=== PATIENT | male | born 1945 | race Caucasian/White ===

== ENCOUNTER → 2016-07-22 | Outpatient (CLI) | payer OTHER, MEDICARE ==
[~2016-07-22] MED LIST: ACTO30TA7 PO; ASPI81CH PO; ASPI81TA60 PO; FISH1000 PO; HYDR25T PO; IBUP80TA PO; JANU100T PO; LIPI20TA PO; MAGN500C PO; METF500T4 PO; MULT1TAB8 PO; PRIL40CA PO; VITA500C10 PO; [UNRECOGNIZED DRUG - OTHER] PO
== END ==
LOC: M PAIN 11:00
PROVIDERS: ATTEND Anesthesiology
DX: Z09 Encounter for follow-up examination after completed treatment for conditions other than malignant neoplasm (principal); G89.29 Other chronic pain; M51.16 Intervertebral disc disorders with radiculopathy, lumbar region; M51.17 Intervertebral disc disorders with radiculopathy, lumbosacral region; E11.9 Type 2 diabetes mellitus without complications; E78.5 Hyperlipidemia, unspecified; I10 Essential (primary) hypertension; Z88.5 Allergy status to narcotic agent; Z79.82 Long term (current) use of aspirin; Z79.84 Long term (current) use of oral hypoglycemic drugs; Z79.899 Other long term (current) drug therapy

== ENCOUNTER → 2016-09-18 | Outpatient (CLI) | payer OTHER, MEDICARE ==
--- NOTE | 2016-09-29 00:04 | ECWPNPC ---
PATIENT NAME: DARCY THOMASON : 1945 GENDER: MALE VISIT DATE: 09/18/2016 DISCHARGE DATE: 09/18/16 1144 VISIT LOCKED DATE TIME: PHYSICIAN: HUSSAIN WATT RESOURCE: HUSSAIN WATT REASON FOR APPOINTMENT 1. W/C BACK PAIN HISTORY OF PRESENT ILLNESS HISTORY OF PRESENT ILLNESS: PAIN THE PATIENT DESCRIBES THE PAIN... 70 YEAR OLD MALE PATIENT WITH HISTORY OF CHRONIC BACK PAIN. PATIENT DESCRIBES THE PAIN ACHING, TENDER, SORE, AND HAVING IT ALL THE TIME WITH A PAIN SCORE OF 0/10. PATIENT WAS INJURED IN A WORK RELATED INJURY ON 10/01/2012 WORKING FOR [employer] THE [facility], PATIENT WAS AT [facility] WHEN HE SLIPPED AND FELL ON A FROZEN STAIRCASE INJURING HIS BACK. PATIENT RECEIVED A LUMBAR EPIDURAL ON 04/23/2016 AND REPORTS HAVING OVER 50% DECREASE IN PAIN AND AN INCREASE OF MOBILITY AND FUNCTIONALITY SINCE THE INJECTION. PATIENT REPORTS THAT HE ONLY TAKES A TYLENOL NEEDED. PATIENT DENIES UNEXPLAINABLE WEIGHT LOSS, FEVER, CHILLS, NEW CHANGES ON HIS URINARY OR BOWEL CONTROL. FALL RISK SCREENING: SCREENING :NO FALLS IN THE PAST YEAR CURRENT MEDICATIONS TAKING ACTOS 30 MG TABLET 1 TABLET ORALLY EVERY OTHER DAY, NOTES: 11 TAKING ATARAX 25MG TABLET DIRECTED ORAL TAKING VITAMIN C 500 MG DIRECTED ORALLY TWICE DAILY TAKING ASPIR-81 81 MG TABLET DELAYED RELEASE 1 TABLET ORALLY ONCE A DAY TAKING DAILY MULTI TABLET DIRECTED ORALLY ONCE DAILY TAKING METFORMIN HCL 500 MG TABLET 4 TABS AT ONCE ORALLY ONCE DAILY TAKING MAGNESIUM 500 MG TABLET DIRECTED ORALLY ONCE DAILY TAKING FISH OIL 1000 MG CAPSULE DIRECTED ORALLY ONCE DAILY TAKING PRILOSEC 40 MG CAPSULE DELAYED RELEASE 1 CAPSULE ORALLY ONCE A DAY TAKING JANUVIA 100 MG TABLET 1 TABLET ORALLY ONCE A DAY TAKING LIPITOR 20 MG TABLET 1 TABLET ORALLY ONCE A DAY TAKING GLYBURIDE 1 TAB 2.5 NG ORAL ONCE DAILY TAKING VITAMIN D (CHOLECALCIFEROL) 1000 UNIT CAPSULE 1 CAPSULE ORALLY ONCE A DAY NOT-TAKING ONE DAILY TABLET DIRECTED ORALLY NOT-TAKING ZOCOR 40 MG TABLET 1 TABLET EVERY EVENING ORALLY ONCE A DAY NOT-TAKING POTASSIUM CITRATE 1080 MG TABLET EXTENDED RELEASE 1 TABLET WITH MEALS ORALLY THREE TIMES A DAY MEDICATION LIST REVIEWED AND RECONCILED WITH THE PATIENT PAST MEDICAL HISTORY KIDNEY STONES DIABETES MALLITUS ERECTILE DYSFUNCTION HYPERLIPIDEMIA HYPERTENSION ALLERGIES DEMEROL: NAUSEA/VOMITING: SIDE EFFECTS SURGICAL HISTORY APPENDECTOMY 2007 ESWL VASECTOMY 1989 OPEN HEART SURGURY LEFT ANKLE WITH 2 SCREWS 1985 LEFT HAND TRIGGER FINGER 2006 CATARACTS REMOVED BOTH EYES FAMILY HISTORY NO FAMILY HISTORY DOCUMENTED. SOCIAL HISTORY GENERAL: TOBACCO USE ARE YOU A:NONSMOKER LEARNING BARRIERS / SPECIAL NEEDS ORIENTED TO PLAN OF CARE: PATIENT, PAIN MANAGEMENT PATIENT, ORIENTED TO PLAN OF CARE: PATIENT, PAIN MANAGEMENT PATIENT. NEW PATIENT PAIN DIARY TODAY'S VISITNOTES FROM 0-10, WHAT LEVEL IS YOUR PAIN TODAY?0 PAIN CLINIC PFS, CLERGY, PUBLIC HEALTH REFERRALS PFS REFERRAL NEEDED?NO CLERGY REFERRAL NEEDED?NO PUBLIC HEALTH REFERRAL NEEDED?NO WAS THE PROVIDER NOTIFIED OF ANY PERTINENT INFO?NO PFS REFERRAL NEEDED?NO CLERGY REFERRAL NEEDED?NO PUBLIC HEALTH REFERRAL NEEDED?NO WAS THE PROVIDER NOTIFIED OF ANY PERTINENT INFO?NO HOSPITALIZATION/MAJOR DIAGNOSTIC PROCEDURE SURGERY RELATED REVIEW OF SYSTEMS CONSTITUTIONAL: ANY CHANGE IN YOUR MEDICAL CONDITION? NO . CHILLS NO . FEVER NO . INFECTION: DO YOU HAVE NEW INFECTIONS? NO . DO YOU HAVE HISTORY OF MRSA? NO . MUSCULOSKELETAL: ANY NEW PATTERNS OF PAIN OR NUMBNESS? NO . GASTROENTEROLOGY: ANY NEW CHANGE IN BOWEL CONTROL? NO . GENITOURINARY: ANY NEW CHANGE IN BLADDER CONTROL? NO . IS THERE A CHANCE YOU COULD BE ? NO . HEMATOLOGY/LYMPH: DO YOU TAKE ANY BLOOD THINNERS? (FOR EXAMPLE- COUMADIN, PLAVIX, AGGRENOX, PLATEL, PRADAXA, OR XARELTO) YES . WHEN WAS YOUR LAST DOSE? DATE: TIME: 09/18/16@0732 . NEUROLOGY: HAVE YOU FALLEN IN THE PAST 6 MONTHS? NO . ANY NEW EXTREMITY NUMBNESS OR WEAKNESS? NO . CARDIOLOGY: DO YOU HAVE A PACEMAKER OR DEFIBRILLATOR? NO . RESPIRATORY: HAVE YOU BEEN SICK IN THE PAST WEEK? NO . FEVER NO . FLU LIKE SYMPTOMS? NO . COUGH NO . INTEGUMENTARY: DO YOU HAVE ANY RASHES OR OPEN SORES? NO . ALLERGIC/IMMUNO: ARE YOU ALLERGIC TO SHELLFISH OR IV DYE? NO . ANY NEW ALLERGIES? NO . PSYCHIATRIC: DO YOU HAVE THOUGHTS OF HURTING YOURSELF OR SOMEONE ELSE? NO . ARE YOU ABUSED, NEGLECTED, OR IN AN UNSAFE ENVIRONMENT? NO . ENDOCRINOLOGY: ARE YOU DIABETIC? YES . OTHER: DO YOU NEED ANY PRESCRIPTIONS? NO . IF YES, PLEASE LIST: ____ . ANY NEW PROBLEMS WITH YOUR MEDICATIONS? NO . WHEN DID YOU LAST EAT? ____ . WHEN DID YOU LAST DRINK? ____ . WHAT DID YOU LAST DRINK? ____ . NAME OF PERSON DRIVING YOU HOME? ____ . DO YOU HAVE ANY OTHER QUESTIONS OR CONCERNS NO . REVIEWED BY: PROVIDER: HUSSAIN WATT MD . VITAL SIGNS WT 196.6 LBS, HT 58 IN, BMI 41.08 INDEX, BP 135/75 MM HG, HR 57 /MIN, RR 16 /MIN, TEMP 97.9 F, OXYGEN SAT % 97%, NA INITIALS SC 11:07, REVIEWED BY: VD. EXAMINATION : PATIENT IS ALERT O X 3 AND COOPERATIVE. PATIENT AMBULATES WITH A LIMP. MRI OF THE LUMBAR SPINE SHOWS A DISC BULGE ON L3-L4, L4-L5, AND L5-S1 WITH HYPERTROPHIC FACET CHANGES AND STENOSIS. RIGHT LEG IS WEAKER AT FLEXION AND EXTENSION. ASSESSMENTS INTERVERTEBRAL DISC DISORDERS WITH RADICULOPATHY, LUMBAR REGION - M51.16 (PRIMARY) INTERVERTEBRAL DISC DISORDERS WITH RADICULOPATHY, LUMBOSACRAL REGION - M51.17 TREATMENT INTERVERTEBRAL DISC DISORDERS WITH RADICULOPATHY, LUMBAR REGION NOTES: WE DISCUSSED SEVERAL ISSUES WITH MR. THOMASON'S PAIN MANAGEMENT CASE. AT THIS TIME THE PATIENT WILL CONTINUE WITH THE SAME MEDICATION REGIME BEFORE. PATIENT REPORTS TILL DOING VERY WELL FROM THE INJECTION IN APRIL AND WOULD LIKE TO HOLD OFF ON INJECTIONS. MR. THOMASON STATES HE HAS HAD AN INCREASE IN MOBILITY AND FUNCTIONALITY AND OVER A 50% DECREASE IN PAIN SINCE THE INJECTION. PATIENT WILL RETURN TO THE CLINIC IN 3 MONTHS BUT WAS ADVISED TO CALL IF THE PAIN SIGNIFICANTLY INCREASES. INSTRUCTIONS WERE GIVEN, QUESTIONS WERE ANSWERED, PATIENT REPORTS UNDERSTANDING AND AGREES WITH THE PLAN. I, GEE TOLBERT, DOCUMENTED THE ABOVE INFORMATION ACTING A SCRIBE FOR DR. WATT. I HAVE REVIEWED THE ABOVE DOCUMENT, WRITTEN BY GEE VERDE AND I VERIFY THAT IT IS ACCURATE. PROCEDURES PN WORKMANS' COMP OPINION IN YOUR OPINION, WAS THE INCIDENT THAT THE PATIENT DESCRIBED THE COMPETENT MEDICAL CAUSE OF THIS INJURY/ILLNESS? YES ARE THE PATIENT'S COMPLAINTS CONSISTENT WITH HIS/HER HISTORY OF THE INJURY/ILLNESS? YES IS THE PATIENT'S HISTORY OF THE INJURY/ILLNESS CONSISTENT WITH YOUR OBJECTIVE FINDING? YES WHAT IS THE PERCENTAGE OF TEMPORARY IMPAIRMENT? MODERATE = 50% IS THE PATIENT WORKING? NO DOCTOR ON SITE: HUSSAIN GUPTA MD PROCEDURE CODES FA211 ESTABILISHED PATIENT [facility] FACILITY CHARGE G8427 DOC MEDS VERIFIED W/PT OR RE G8730 PAIN ASSESS POS TOOL F/U PLAN DOC DISPOSITION & COMMUNICATION FOLLOW UP 3 MONTHS ELECTRONICALLY SIGNED BY HUSSAIN WATT MD ON 09/28/2016 AT 09:16 PM EDT DISCLAIMER : THIS IS A VISIT SUMMARY EXTRACTED FROM THE [employer] CHART. IT IS NOT A COPY OF THE [employer] PROGRESS NOTE. KIM
== END ==
LOC: M PAIN 11:00
PROVIDERS: ATTEND Anesthesiology
DX: Z09 Encounter for follow-up examination after completed treatment for conditions other than malignant neoplasm (principal); G89.29 Other chronic pain; M51.16 Intervertebral disc disorders with radiculopathy, lumbar region; M51.17 Intervertebral disc disorders with radiculopathy, lumbosacral region; E11.9 Type 2 diabetes mellitus without complications; E78.5 Hyperlipidemia, unspecified; I10 Essential (primary) hypertension; N52.9 Male erectile dysfunction, unspecified; Z79.82 Long term (current) use of aspirin; Z79.84 Long term (current) use of oral hypoglycemic drugs; Z79.899 Other long term (current) drug therapy; Z87.442 Personal history of urinary calculi; Z88.5 Allergy status to narcotic agent

== ENCOUNTER → 2016-12-29 | Outpatient (CLI) | payer OTHER, MEDICARE ==
[~2016-12-29] MED LIST changes: +ACTO30TA15 PO; -ACTO30TA7 PO; +HYDR-3363 PO; -HYDR25T PO
--- NOTE | 2017-01-13 01:36 | ECWPNPC ---
PATIENT NAME: DARCY THOMASON : 1945 GENDER: MALE VISIT DATE: 12/29/2016 DISCHARGE DATE: 12/29/16 1634 VISIT LOCKED DATE TIME: PHYSICIAN: HUSSAIN WATT RESOURCE: HUSSAIN WATT REASON FOR APPOINTMENT 1. W/C BACK HISTORY OF PRESENT ILLNESS HISTORY OF PRESENT ILLNESS: PAIN THE PATIENT DESCRIBES THE PAIN... 71 YEAR OLD MALE PATIENT WITH HISTORY OF CHRONIC LOW BACK PAIN. PATIENT DESCRIBES THE PAIN ACHING, BURNING, AND SORE WITH A PAIN SCORE OF 4/10. PATIENT WAS INJURED IN A WORK RELATED INJURY ON 10/01/2012 WORKING FOR [employer] [facility], PATIENT WAS AT A [facility] WHEN HE SLIPPED AND FELL ON A FROZEN STAIRCASE INJURING HIS BACK. PATIENT RECEIVED A LUMBAR EPIDURAL ON 04/23/2016 AND STATES THAT HE HAS LONG LASTING RELIEF WITH OVER 50% RELIEF FROM INJECTION WITH INCREASED MOBILITY AND FUNCTIONALITY BUT THE PAIN IS STARTING TO RETURN. CURRENTLY THE PATIENT IS NOT USING ANY PAIN MEDICATIONS. PATIENT DENIES UNEXPLAINABLE WEIGHT LOSS, FEVER, CHILLS, NEW CHANGES ON HIS URINARY OR BOWEL CONTROL. FALL RISK SCREENING: SCREENING :NO FALLS IN THE PAST YEAR CURRENT MEDICATIONS TAKING ACTOS 30 MG TABLET 1 TABLET ORALLY EVERY OTHER DAY, NOTES: 11 TAKING ATARAX 25MG TABLET DIRECTED ORAL TAKING VITAMIN C 500 MG DIRECTED ORALLY TWICE DAILY TAKING ASPIR-81 81 MG TABLET DELAYED RELEASE 1 TABLET ORALLY ONCE A DAY TAKING DAILY MULTI TABLET DIRECTED ORALLY ONCE DAILY TAKING METFORMIN HCL 500 MG TABLET 4 TABS AT ONCE ORALLY ONCE DAILY TAKING MAGNESIUM 500 MG TABLET DIRECTED ORALLY ONCE DAILY TAKING FISH OIL 1000 MG CAPSULE DIRECTED ORALLY ONCE DAILY TAKING PRILOSEC 40 MG CAPSULE DELAYED RELEASE 1 CAPSULE ORALLY ONCE A DAY TAKING JANUVIA 100 MG TABLET 1 TABLET ORALLY ONCE A DAY TAKING LIPITOR 20 MG TABLET 1 TABLET ORALLY ONCE A DAY TAKING GLYBURIDE 1 TAB 2.5 NG ORAL ONCE DAILY TAKING VITAMIN D (CHOLECALCIFEROL) 1000 UNIT CAPSULE 1 CAPSULE ORALLY ONCE A DAY NOT-TAKING ONE DAILY TABLET DIRECTED ORALLY NOT-TAKING ZOCOR 40 MG TABLET 1 TABLET EVERY EVENING ORALLY ONCE A DAY NOT-TAKING POTASSIUM CITRATE 1080 MG TABLET EXTENDED RELEASE 1 TABLET WITH MEALS ORALLY THREE TIMES A DAY MEDICATION LIST REVIEWED AND RECONCILED WITH THE PATIENT PAST MEDICAL HISTORY KIDNEY STONES DIABETES MALLITUS ERECTILE DYSFUNCTION HYPERLIPIDEMIA HYPERTENSION ALLERGIES DEMEROL: NAUSEA/VOMITING: SIDE EFFECTS SURGICAL HISTORY APPENDECTOMY 2007 ESWL VASECTOMY 1989 OPEN HEART SURGURY LEFT ANKLE WITH 2 SCREWS 1985 LEFT HAND TRIGGER FINGER 2006 CATARACTS REMOVED BOTH EYES FAMILY HISTORY NO FAMILY HISTORY DOCUMENTED. SOCIAL HISTORY GENERAL: TOBACCO USE ARE YOU A:NONSMOKER LEARNING BARRIERS / SPECIAL NEEDS ORIENTED TO PLAN OF CARE: PATIENT, PAIN MANAGEMENT PATIENT, ORIENTED TO PLAN OF CARE: PATIENT, PAIN MANAGEMENT PATIENT. NEW PATIENT PAIN DIARY TODAY'S VISITNOTES FROM 0-10, WHAT LEVEL IS YOUR PAIN TODAY?0 PAIN CLINIC PFS, CLERGY, PUBLIC HEALTH REFERRALS PFS REFERRAL NEEDED?NO CLERGY REFERRAL NEEDED?NO PUBLIC HEALTH REFERRAL NEEDED?NO WAS THE PROVIDER NOTIFIED OF ANY PERTINENT INFO?NO PFS REFERRAL NEEDED?NO CLERGY REFERRAL NEEDED?NO PUBLIC HEALTH REFERRAL NEEDED?NO WAS THE PROVIDER NOTIFIED OF ANY PERTINENT INFO?NO HOSPITALIZATION/MAJOR DIAGNOSTIC PROCEDURE SURGERY RELATED REVIEW OF SYSTEMS REVIEWED BY: PROVIDER: HUSSAIN WATT MD . CONSTITUTIONAL: ANY CHANGE IN YOUR MEDICAL CONDITION? NO . CHILLS NO . FEVER NO . INFECTION: DO YOU HAVE NEW INFECTIONS? NO . DO YOU HAVE HISTORY OF MRSA? NO . MUSCULOSKELETAL: ANY NEW PATTERNS OF PAIN OR NUMBNESS? NO . GASTROENTEROLOGY: ANY NEW CHANGE IN BOWEL CONTROL? NO . GENITOURINARY: ANY NEW CHANGE IN BLADDER CONTROL? NO . IS THERE A CHANCE YOU COULD BE ? NO . HEMATOLOGY/LYMPH: DO YOU TAKE ANY BLOOD THINNERS? (FOR EXAMPLE- COUMADIN, PLAVIX, AGGRENOX, PLATEL, PRADAXA, OR XARELTO) NO . WHEN WAS YOUR LAST DOSE? DATE: TIME: . NEUROLOGY: HAVE YOU FALLEN IN THE PAST 6 MONTHS? NO . ANY NEW EXTREMITY NUMBNESS OR WEAKNESS? YES . CARDIOLOGY: DO YOU HAVE A PACEMAKER OR DEFIBRILLATOR? NO . RESPIRATORY: HAVE YOU BEEN SICK IN THE PAST WEEK? NO . FEVER NO . FLU LIKE SYMPTOMS? NO . COUGH NO . INTEGUMENTARY: DO YOU HAVE ANY RASHES OR OPEN SORES? NO . ALLERGIC/IMMUNO: ARE YOU ALLERGIC TO SHELLFISH OR IV DYE? NO . ANY NEW ALLERGIES? NO . PSYCHIATRIC: DO YOU HAVE THOUGHTS OF HURTING YOURSELF OR SOMEONE ELSE? NO . ARE YOU ABUSED, NEGLECTED, OR IN AN UNSAFE ENVIRONMENT? NO . ENDOCRINOLOGY: ARE YOU DIABETIC? NO . OTHER: DO YOU NEED ANY PRESCRIPTIONS? NO . IF YES, PLEASE LIST: ____ . ANY NEW PROBLEMS WITH YOUR MEDICATIONS? NO . WHEN DID YOU LAST EAT? ____ . WHEN DID YOU LAST DRINK? ____ . WHAT DID YOU LAST DRINK? ____ . NAME OF PERSON DRIVING YOU HOME? ____ . DO YOU HAVE ANY OTHER QUESTIONS OR CONCERNS NO . VITAL SIGNS WT 189.0 LBS, HT 58 IN, BMI 39.50 INDEX, BP 142/87 MM HG, HR 67 /MIN, RR 16 /MIN, TEMP 97.4 F, OXYGEN SAT % 98%, NA INITIALS TL 1527, REVIEWED BY: KG. EXAMINATION : PATIENT IS ALERT O X 3 AND COOPERATIVE. PATIENT AMBULATES WITH A LIMP. MRI OF THE LUMBAR SPINE SHOWS A DISC BULGE ON L3-L4, L4-L5, AND L5-S1 WITH HYPERTROPHIC FACET CHANGES AND STENOSIS. RIGHT LEG IS WEAKER AT FLEXION AND EXTENSION. ASSESSMENTS INTERVERTEBRAL DISC DISORDERS WITH RADICULOPATHY, LUMBAR REGION - M51.16 (PRIMARY) INTERVERTEBRAL DISC DISORDERS WITH RADICULOPATHY, LUMBOSACRAL REGION - M51.17 TREATMENT INTERVERTEBRAL DISC DISORDERS WITH RADICULOPATHY, LUMBAR REGION NOTES: WE DISCUSSED SEVERAL ISSUES WITH MR. THOMASON' PAIN MANAGEMENT CASE. AT THIS TIME THE PATIENT WILL CONTINUE USING OVER THE COUNTER MEDICATIONS TO MANAGE HIS PAIN. PATIENT STATES THAT THE PAIN IS STARTED TO RETURN FROM THE LUMBAR EPIDURAL DONE ON 04/23/2016. DUE TO THE LONG LASTING RELIEF THE PATIENT RECEIVED I WOULD LIKE TO MOVE FORWARD WITH ANOTHER LUMBAR EPIDURAL AT THIS TIME. WE DISCUSSED THE RISKS, BENENFITS, AND ALTNERATIVES OF THE INJECTION AND THE PATIENT WOULD LIKE TO PROCEED. INSTRUCTIONS WERE GIVEN, QUESTIONS WERE ANSWERED, PATIENT REPORTS UNDERSTANDING AND AGREES WITH THE PLAN. I, GEE TOLBERT, DOCUMENTED THE ABOVE INFORMATION ACTING A SCRIBE FOR DR. WATT. I HAVE REVIEWED THE ABOVE DOCUMENT, WRITTEN BY GEE VERDE AND I VERIFY THAT IT IS ACCURATE. PROCEDURES PN WORKMANS' COMP OPINION IN YOUR OPINION, WAS THE INCIDENT THAT THE PATIENT DESCRIBED THE COMPETENT MEDICAL CAUSE OF THIS INJURY/ILLNESS? YES ARE THE PATIENT'S COMPLAINTS CONSISTENT WITH HIS/HER HISTORY OF THE INJURY/ILLNESS? YES IS THE PATIENT'S HISTORY OF THE INJURY/ILLNESS CONSISTENT WITH YOUR OBJECTIVE FINDING? YES WHAT IS THE PERCENTAGE OF TEMPORARY IMPAIRMENT? MODERATE = 50% IS THE PATIENT WORKING? NO DOCTOR ON SITE: HUSSAIN GUPTA MD PROCEDURE CODES FA211 ESTABILISHED PATIENT [facility] FACILITY CHARGE G8427 DOC MEDS VERIFIED W/PT OR RE G8730 PAIN ASSESS POS TOOL F/U PLAN DOC DISPOSITION & COMMUNICATION FOLLOW UP LESI AFTER APPROVAL ELECTRONICALLY SIGNED BY HUSSAIN WATT MD ON 01/12/2017 AT 08:37 PM EDT DISCLAIMER : THIS IS A VISIT SUMMARY EXTRACTED FROM THE [employer] CHART. IT IS NOT A COPY OF THE [employer] PROGRESS NOTE. JOSED
== END ==
LOC: M PAIN 15:20
PROVIDERS: ATTEND Anesthesiology
DX: G89.29 Other chronic pain (principal); M51.16 Intervertebral disc disorders with radiculopathy, lumbar region; M51.17 Intervertebral disc disorders with radiculopathy, lumbosacral region; E11.9 Type 2 diabetes mellitus without complications; N52.9 Male erectile dysfunction, unspecified; E78.5 Hyperlipidemia, unspecified; I10 Essential (primary) hypertension; Z87.442 Personal history of urinary calculi; Z79.82 Long term (current) use of aspirin; Z79.84 Long term (current) use of oral hypoglycemic drugs; Z79.899 Other long term (current) drug therapy; Z88.5 Allergy status to narcotic agent

== ENCOUNTER → 2017-03-03 | Outpatient (CLI) | payer OTHER, MEDICARE ==
[~2017-03-03] MED LIST changes: +ISOVUE-M 300 61% 15ML VIAL (Q9967) As Ordered ONE; +LIDOCAINE 1% SDV INJ 30 ML VIAL As Ordered ONE; +methylPREDNISolone SUSP 40 MG/ML (DEPO-medrol) VIAL (J1030) As Ordered ONE
--- NOTE | 2017-03-03 15:25 | REP ---
FLUOROSCOPIC GUIDANCE FOR SPINE EPIDURAL INJECTION: 03/03/2017. CLINICAL HISTORY: Low back pain. FINDINGS: Four images from C-arm fluoroscopy provided to Dr. Dr. Almazan of the pain clinic for lumbar epidural steroid injection. The initial image shows a needle just to the right of midline at the L5-S1 level with the next three images as cross-table projection showing the needle in the lumbar epidural space. The second image with contrast into the epidural space of the third image and the needle removed on the fourth image. Fluoroscopy time: 10 seconds. Signed by Mushtaq Grullon MD 03/03/2017 04:16 P
--- NOTE | 2017-03-04 23:39 | ECWPNPC ---
PATIENT NAME: DARCY THOMASON : 1945 GENDER: MALE VISIT DATE: 03/03/2017 DISCHARGE DATE: 03/03/17 1310 VISIT LOCKED DATE TIME: PHYSICIAN: HUSSAIN WATT RESOURCE: HUSSAIN WATT REASON FOR APPOINTMENT 1. LESI HISTORY OF PRESENT ILLNESS HISTORY OF PRESENT ILLNESS: PAIN THE PATIENT DESCRIBES THE PAIN... FALL RISK SCREENING: SCREENING :NO FALLS IN THE PAST YEAR CURRENT MEDICATIONS TAKING ACTOS 30 MG TABLET 1 TABLET ORALLY EVERY OTHER DAY, NOTES: 899 TAKING ATARAX 25MG TABLET DIRECTED ORAL , NOTES: 03-02-172099 TAKING VITAMIN C 500 MG DIRECTED ORALLY TWICE DAILY, NOTES: 03-02-17 TAKING ASPIR-81 81 MG TABLET DELAYED RELEASE 1 TABLET ORALLY ONCE A DAY, NOTES: 03-02-172099 TAKING DAILY MULTI TABLET DIRECTED ORALLY ONCE DAILY, NOTES: 03-02-17899 TAKING METFORMIN HCL 500 MG TABLET 4 TABS AT ONCE ORALLY ONCE DAILY, NOTES: 03-02-17899 TAKING MAGNESIUM 500 MG TABLET DIRECTED ORALLY ONCE DAILY, NOTES: 03-02-172099 TAKING FISH OIL 1000 MG CAPSULE DIRECTED ORALLY ONCE DAILY, NOTES: 03-02-172099 TAKING PRILOSEC 40 MG CAPSULE DELAYED RELEASE 1 CAPSULE ORALLY ONCE A DAY, NOTES: 03-02-17899 TAKING JANUVIA 100 MG TABLET 1 TABLET ORALLY ONCE A DAY, NOTES: 03-02-17899 TAKING LIPITOR 20 MG TABLET 1 TABLET ORALLY ONCE A DAY, NOTES: 03-02-172099 TAKING GLYBURIDE 1 TAB 2.5 NG ORAL ONCE DAILY, NOTES: 03-02-17899 TAKING VITAMIN D (CHOLECALCIFEROL) 1000 UNIT CAPSULE 1 CAPSULE ORALLY ONCE A DAY, NOTES: 03-02-172099 NOT-TAKING ONE DAILY TABLET DIRECTED ORALLY NOT-TAKING ZOCOR 40 MG TABLET 1 TABLET EVERY EVENING ORALLY ONCE A DAY NOT-TAKING POTASSIUM CITRATE 1080 MG TABLET EXTENDED RELEASE 1 TABLET WITH MEALS ORALLY THREE TIMES A DAY MEDICATION LIST REVIEWED AND RECONCILED WITH THE PATIENT PAST MEDICAL HISTORY KIDNEY STONES DIABETES MALLITUS ERECTILE DYSFUNCTION HYPERLIPIDEMIA HYPERTENSION ALLERGIES DEMEROL: NAUSEA/VOMITING: SIDE EFFECTS REVIEW OF SYSTEMS REVIEWED BY: PROVIDER: . CONSTITUTIONAL: ANY CHANGE IN YOUR MEDICAL CONDITION? NO . CHILLS NO . FEVER NO . INFECTION: DO YOU HAVE NEW INFECTIONS? NO . DO YOU HAVE HISTORY OF MRSA? NO . MUSCULOSKELETAL: ANY NEW PATTERNS OF PAIN OR NUMBNESS? NO . GASTROENTEROLOGY: ANY NEW CHANGE IN BOWEL CONTROL? NO . GENITOURINARY: ANY NEW CHANGE IN BLADDER CONTROL? NO . IS THERE A CHANCE YOU COULD BE ? NO . HEMATOLOGY/LYMPH: DO YOU TAKE ANY BLOOD THINNERS? (FOR EXAMPLE- COUMADIN, PLAVIX, AGGRENOX, PLATEL, PRADAXA, OR XARELTO) NO . WHEN WAS YOUR LAST DOSE? DATE: TIME: . NEUROLOGY: HAVE YOU FALLEN IN THE PAST 6 MONTHS? NO . ANY NEW EXTREMITY NUMBNESS OR WEAKNESS? NO . CARDIOLOGY: DO YOU HAVE A PACEMAKER OR DEFIBRILLATOR? NO . RESPIRATORY: HAVE YOU BEEN SICK IN THE PAST WEEK? NO . FEVER NO . FLU LIKE SYMPTOMS? NO . COUGH NO . INTEGUMENTARY: DO YOU HAVE ANY RASHES OR OPEN SORES? NO . ALLERGIC/IMMUNO: ARE YOU ALLERGIC TO SHELLFISH OR IV DYE? NO . ANY NEW ALLERGIES? NO . PSYCHIATRIC: DO YOU HAVE THOUGHTS OF HURTING YOURSELF OR SOMEONE ELSE? NO . ARE YOU ABUSED, NEGLECTED, OR IN AN UNSAFE ENVIRONMENT? NO . ENDOCRINOLOGY: ARE YOU DIABETIC? NO . OTHER: DO YOU NEED ANY PRESCRIPTIONS? NO . IF YES, PLEASE LIST: ____ . ANY NEW PROBLEMS WITH YOUR MEDICATIONS? NO . WHEN DID YOU LAST EAT? ____LAST NIGHT 1030 PM . WHEN DID YOU LAST DRINK? ____LAST NIGHT 03-02-17 2230 . WHAT DID YOU LAST DRINK? ____WATER . NAME OF PERSON DRIVING YOU HOME? ____MELISSA THOMASON . DO YOU HAVE ANY OTHER QUESTIONS OR CONCERNS NO . VITAL SIGNS WT 189 LBS, HT 58 IN, BMI 39.50 INDEX, BP 157/88 MM HG, HR 63 /MIN, RR 16 /MIN, TEMP 97.5 F, OXYGEN SAT % 96%, NA INITIALS AW 1053, REVIEWED BY: KG. ASSESSMENTS INTERVERTEBRAL DISC DISORDER WITH RADICULOPATHY OF LUMBOSACRAL REGION - M51.17 (PRIMARY) PROCEDURES PRE PROCEDURE DIAGNOSIS LUMBOSACRAL DISC DISORDER WITH RADICULOPATHY POST PROCEDURE DIAGNOSIS LUMBOSACRAL DISC DISORDER WITH RADICULOPATHY PROCEDURE LUMBAR EPIDURAL STEROID INJECTION UNDER FLUOROSCOPIC GUIDANCE SURGEON DR. HUSSAIN WATT TRAINING AND DEVELOPMENT PROFESSIONAL NONE ANESTHESIA LOCAL PRE PROCEDURE NOTE THE PATIENT HAS A HISTORY OF CHRONIC LOW BACK PAIN. I EVALUATE THE PATIENT AND REVIEWED THE CHART. I WENT OVER THE RISKS, ALTERNATIVES, AND BENEFITS ASSOCIATED WITH THIS PROCEDURE. THE PATIENT WOULD LIKE TO PROCEED AND GIVE CONSENT TO PERFORMED THE PROCEDURE. THE PATIENT DENIES UNEXPLAINABLE WEIGHT LOSS, FEVER, CHILLS, OR NEW CHANGES IN URINARY OR BOWEL CONTROL. DESCRIPTION OF PROCEDURE THE PATIENT WAS BROUGHT TO THE PROCEDURE ROOM AND PLACED IN THE PRONE POSITION. THE LUMBOSACRAL AREA WAS CLEANED WITH BETADINE SOLUTION AND DRAPED ASEPTICALLY. THE PROCEDURE WAS DONE UNDER STERILE CONDITIONS. I CHECKED LATERALITY AND THE LEVEL WHERE THE PROCEDURE WAS GOING TO BE PERFORMED WITH THE PATIENT AND THE SUPPORTING STAFF AT THE MOMENT OF THE TIME OUT IN THE PROCEDURE ROOM. UNDER FLUOROSCOPIC GUIDANCE, THE TARGET POINT WAS SELECTED AT THE INTERLAMINAR LEVEL OF L5-S1. LIDOCAINE WAS USED TO NUMB THE SKIN AND THE SUBCUTANEOUS TISSUE BELOW IT. EPIDURAL TUOHY NEEDLE, 17-GAUGE, WAS ADVANCED UNDER FLUOROSCOPIC GUIDANCE AND FOLLOWING PATIENT FEEDBACK UNTIL THE EPIDURAL SPACE WAS REACHED, 7 CM DEEP INTO THE SKIN BY THE LOSS OF RESISTANCE TECHNIQUE. ISOVUE M DYE 30%, 0.25 ML, WAS INJECTED SHOWING ADEQUATE SPREAD OF THE DYE. THEN, A SOLUTION OF 3 ML OF NORMAL SALINE WITH DEPO-MEDROL 60 MG WAS INJECTED SLOWLY FOLLOWING PATIENT FEEDBACK. THERE WAS NO EVIDENCE OF BLOOD, PARESTHESIA OR CEREBROSPINAL FLUID DURING THE PROCEDURE. THE PATIENT WAS SENT TO THE RECOVERY ROOM. THE PATIENT WAS MOVING THE EXTREMITIES AND DOING WELL. THERE WAS NO COMPLICATION DURING THE PROCEDURE. FLUOROSCOPY TIME WAS 10 SECONDS. POST PROCEDURE NOTE THE PATIENT WILL BE SEEN IN A FOLLOW UP IN THE NEXT FEW WEEKS. INSTRUCTIONS WERE GIVEN, QUESTIONS WERE ANSWERED, AND THE PATIENT EXPRESSED UNDERSTANDING AND AGREES WITH THE PLAN. I, GEE TOLBERT, DOCUMENTED THE ABOVE INFORMATION ACTING A SCRIBE FOR DR. WATT. I HAVE REVIEWED THE ABOVE DOCUMENT, WRITTEN BY GEE VERDE AND I VERIFY THAT IT IS ACCURATE PN WORKMANS' COMP OPINION IN YOUR OPINION, WAS THE INCIDENT THAT THE PATIENT DESCRIBED THE COMPETENT MEDICAL CAUSE OF THIS INJURY/ILLNESS? YES ARE THE PATIENT'S COMPLAINTS CONSISTENT WITH HIS/HER HISTORY OF THE INJURY/ILLNESS? YES IS THE PATIENT'S HISTORY OF THE INJURY/ILLNESS CONSISTENT WITH YOUR OBJECTIVE FINDING? YES WHAT IS THE PERCENTAGE OF TEMPORARY IMPAIRMENT? MODERATE = 50% IS THE PATIENT WORKING? NO DOCTOR ON SITE: HUSSAIN GUPTA MD DIAGNOSTIC IMAGING [facility] FLUORO GUIDE SPINE INJECTION (PAIN)[id number] PROCEDURE CODES 76624 LUMBAR/SACRAL W/ IMAGING [id number] RADXPS IN END [id number] PXD DISPOSITION & COMMUNICATION FOLLOW UP 3 WEEKS ELECTRONICALLY SIGNED BY HUSSAIN WATT MD ON 03/04/2017 AT 09:49 PM EDT DISCLAIMER : THIS IS A VISIT SUMMARY EXTRACTED FROM THE [employer] CHART. IT IS NOT A COPY OF THE [employer] PROGRESS NOTE. [employer]
== END ==
LOC: M PAIN 10:45
PROVIDERS: ATTEND Anesthesiology
DX: M51.17 Intervertebral disc disorders with radiculopathy, lumbosacral region (principal); G89.29 Other chronic pain; E11.9 Type 2 diabetes mellitus without complications; N52.9 Male erectile dysfunction, unspecified; E78.5 Hyperlipidemia, unspecified; I10 Essential (primary) hypertension; Z88.8 Allergy status to other drugs, medicaments and biological substances; Z87.442 Personal history of urinary calculi; Z79.84 Long term (current) use of oral hypoglycemic drugs
CPT/HCPCS: 62323; J1030; Q9967

== ENCOUNTER → 2017-03-20 | Outpatient (CLI) | payer OTHER, MEDICARE ==
[~2017-03-20] MED LIST changes: -ISOVUE-M 300 61% 15ML VIAL (Q9967) As Ordered ONE; -LIDOCAINE 1% SDV INJ 30 ML VIAL As Ordered ONE; -methylPREDNISolone SUSP 40 MG/ML (DEPO-medrol) VIAL (J1030) As Ordered ONE
--- NOTE | 2017-04-09 00:54 | ECWPNPC ---
PATIENT NAME: DARCY THOMASON : 1945 GENDER: MALE VISIT DATE: 03/20/2017 DISCHARGE DATE: 03/20/17 1040 VISIT LOCKED DATE TIME: PHYSICIAN: SARABJIT MIRANDA RESOURCE: SARABJIT MIRANDA REASON FOR APPOINTMENT 1. W/C POST PROCEDURE HISTORY OF PRESENT ILLNESS GENERAL: HERE FOR POST PROCEDURE F/U.HAD LESI ON 03-03-17.REPORTS >50% IMPROVEMENT IN LOW BACK PAIN THAT CONTINUES TODAY.REPORTS RESOLUTION OF RIGHT POSTERIOR THIGH PAIN POST PROCEDURE.RATING PAIN VAS 0/10. HISTORY OF PRESENT ILLNESS: PAIN THE PATIENT DESCRIBES THE PAIN... FALL RISK SCREENING: SCREENING :NO FALLS IN THE PAST YEAR CURRENT MEDICATIONS TAKING ACTOS 30 MG TABLET 1 TABLET ORALLY EVERY OTHER DAY TAKING ATARAX 25MG TABLET DIRECTED ORAL TAKING VITAMIN C 500 MG DIRECTED ORALLY TWICE DAILY TAKING ASPIR-81 81 MG TABLET DELAYED RELEASE 1 TABLET ORALLY ONCE A DAY TAKING DAILY MULTI TABLET DIRECTED ORALLY ONCE DAILY TAKING METFORMIN HCL 500 MG TABLET 4 TABS AT ONCE ORALLY ONCE DAILY TAKING MAGNESIUM 500 MG TABLET DIRECTED ORALLY ONCE DAILY TAKING FISH OIL 1000 MG CAPSULE DIRECTED ORALLY ONCE DAILY TAKING PRILOSEC 40 MG CAPSULE DELAYED RELEASE 1 CAPSULE ORALLY ONCE A DAY TAKING JANUVIA 100 MG TABLET 1 TABLET ORALLY ONCE A DAY TAKING LIPITOR 20 MG TABLET 1 TABLET ORALLY ONCE A DAY TAKING GLYBURIDE 1 TAB 2.5 NG ORAL ONCE DAILY TAKING VITAMIN D (CHOLECALCIFEROL) 1000 UNIT CAPSULE 1 CAPSULE ORALLY ONCE A DAY TAKING ONE DAILY TABLET DIRECTED ORALLY TAKING ZOCOR 40 MG TABLET 1 TABLET EVERY EVENING ORALLY ONCE A DAY TAKING POTASSIUM CITRATE 1080 MG TABLET EXTENDED RELEASE 1 TABLET WITH MEALS ORALLY THREE TIMES A DAY MEDICATION LIST REVIEWED AND RECONCILED WITH THE PATIENT PAST MEDICAL HISTORY KIDNEY STONES DIABETES MALLITUS ERECTILE DYSFUNCTION HYPERLIPIDEMIA HYPERTENSION ALLERGIES DEMEROL: NAUSEA/VOMITING: SIDE EFFECTS SURGICAL HISTORY APPENDECTOMY 2007 ESWL VASECTOMY 1989 OPEN HEART SURGURY LEFT ANKLE WITH 2 SCREWS 1985 LEFT HAND TRIGGER FINGER 2006 CATARACTS REMOVED BOTH EYES SOCIAL HISTORY GENERAL: TOBACCO USE ARE YOU A:NONSMOKER LEARNING BARRIERS / SPECIAL NEEDS ORIENTED TO PLAN OF CARE: PATIENT, PAIN MANAGEMENT PATIENT, ORIENTED TO PLAN OF CARE: PATIENT, PAIN MANAGEMENT PATIENT. NEW PATIENT PAIN DIARY TODAY'S VISITNOTES FROM 0-10, WHAT LEVEL IS YOUR PAIN TODAY?0 PAIN CLINIC PFS, CLERGY, PUBLIC HEALTH REFERRALS PFS REFERRAL NEEDED?NO CLERGY REFERRAL NEEDED?NO PUBLIC HEALTH REFERRAL NEEDED?NO WAS THE PROVIDER NOTIFIED OF ANY PERTINENT INFO?NO HAS THE PATIENT BEEN EDUCATED REGARDING HIS/HER PLAN OF CARE?YES HAS THE PATIENT BEEN EDUCATED REGARDING PAIN, THE RISK FOR PAIN, THE IMPORTANCE OF EFFECTIVE PAIN MANAGEMENT, AND THE PAIN ASSESSMENT PROCESS?YES HOSPITALIZATION/MAJOR DIAGNOSTIC PROCEDURE SURGERY RELATED REVIEW OF SYSTEMS REVIEWED BY: PROVIDER: SARABJIT FRAZIER . CONSTITUTIONAL: ANY CHANGE IN YOUR MEDICAL CONDITION? NO . CHILLS NO . FEVER NO . INFECTION: DO YOU HAVE NEW INFECTIONS? NO . DO YOU HAVE HISTORY OF MRSA? NO . MUSCULOSKELETAL: ANY NEW PATTERNS OF PAIN OR NUMBNESS? NO . GASTROENTEROLOGY: ANY NEW CHANGE IN BOWEL CONTROL? NO . GENITOURINARY: ANY NEW CHANGE IN BLADDER CONTROL? NO . IS THERE A CHANCE YOU COULD BE ? NO . HEMATOLOGY/LYMPH: DO YOU TAKE ANY BLOOD THINNERS? (FOR EXAMPLE- COUMADIN, PLAVIX, AGGRENOX, PLATEL, PRADAXA, OR XARELTO) NO . WHEN WAS YOUR LAST DOSE? DATE: TIME: . NEUROLOGY: HAVE YOU FALLEN IN THE PAST 6 MONTHS? NO . ANY NEW EXTREMITY NUMBNESS OR WEAKNESS? NO . CARDIOLOGY: DO YOU HAVE A PACEMAKER OR DEFIBRILLATOR? NO . RESPIRATORY: HAVE YOU BEEN SICK IN THE PAST WEEK? NO . FEVER NO . FLU LIKE SYMPTOMS? NO . COUGH NO . INTEGUMENTARY: DO YOU HAVE ANY RASHES OR OPEN SORES? NO . ALLERGIC/IMMUNO: ARE YOU ALLERGIC TO SHELLFISH OR IV DYE? NO . ANY NEW ALLERGIES? NO . PSYCHIATRIC: DO YOU HAVE THOUGHTS OF HURTING YOURSELF OR SOMEONE ELSE? NO . ARE YOU ABUSED, NEGLECTED, OR IN AN UNSAFE ENVIRONMENT? NO . ENDOCRINOLOGY: ARE YOU DIABETIC? YES . OTHER: DO YOU NEED ANY PRESCRIPTIONS? NO . IF YES, PLEASE LIST: ____ . ANY NEW PROBLEMS WITH YOUR MEDICATIONS? NO . WHEN DID YOU LAST EAT? ____ . WHEN DID YOU LAST DRINK? ____ . WHAT DID YOU LAST DRINK? ____ . NAME OF PERSON DRIVING YOU HOME? ____ . DO YOU HAVE ANY OTHER QUESTIONS OR CONCERNS NO . VITAL SIGNS WT 188 LBS, HT 58 IN, BMI 39.29 INDEX, BP 154/85 MM HG, HR 67 /MIN, RR 16 /MIN, TEMP 97.5 F, OXYGEN SAT % 96, REVIEWED BY: EM. EXAMINATION GENERAL EXAMINATION: LUNGS:LUNG SOUNDS ARE CLEAR. HEART:HEART RATE REGULAR. MUSCULOSKELETAL:*, MUSCLE STRENGTH TESTING 5/5 BILATERAL, PALPATION: NEGATIVE FOR PAIN OVER L/S SPINE. NEGATIVE FOR PAIN OVER L/S PARSPINALS. DIAGNOSTIC: . ASSESSMENTS INTERVERTEBRAL DISC DISORDERS WITH RADICULOPATHY, LUMBOSACRAL REGION - M51.17 (PRIMARY) TREATMENT INTERVERTEBRAL DISC DISORDERS WITH RADICULOPATHY, LUMBOSACRAL REGION NOTES: PATIENT WAS ADVISED TO START A WALKING PROGRAM TO STRENGTHEN LUMBAR PARASPINAL MUSCLES AND IMPROVE MOBILITY. THEY WERE ADVISED THAT THIS WILL IMPROVE WEIGHT LOSS AND ALSO DEPRESSION/FIBROMYALGIA SYMPTOMS. ADVISED TO WALK 10 MINUTES EVERY OTHER DAY ON A FLAT SURFACE. EMPHASIZED THE IMPORTANCE OF DOING THIS CONSISTANTLY AND NOT SPORATICALLY TO AVOID INJURY. STRONG ADVISED NOT TO DO MORE THAN 10 MINUTES EVERY OTHER DSY FOR THE FIRST 4 WEEKS. PROCEDURES PN WORKMANS' COMP OPINION IN YOUR OPINION, WAS THE INCIDENT THAT THE PATIENT DESCRIBED THE COMPETENT MEDICAL CAUSE OF THIS INJURY/ILLNESS? YES ARE THE PATIENT'S COMPLAINTS CONSISTENT WITH HIS/HER HISTORY OF THE INJURY/ILLNESS? YES IS THE PATIENT'S HISTORY OF THE INJURY/ILLNESS CONSISTENT WITH YOUR OBJECTIVE FINDING? YES WHAT IS THE PERCENTAGE OF TEMPORARY IMPAIRMENT? MODERATE TO MARKED = 66.7% IS THE PATIENT WORKING? YES DOCTOR ON SITE: HUSSAIN GUPTA MD PROCEDURE CODES FA211 ESTABILISHED PATIENT [facility] CHARGE DISPOSITION & COMMUNICATION FOLLOW UP 3 MONTHS ELECTRONICALLY SIGNED BY FREDDIE CAZARES ON 04/08/2017 AT 07:12 PM EDT DISCLAIMER : THIS IS A VISIT SUMMARY EXTRACTED FROM THE [employer] CHART. IT IS NOT A COPY OF THE [employer] PROGRESS NOTE. KIM
== END ==
LOC: M PAIN 10:00
PROVIDERS: ATTEND Nurse Practitioner Family
DX: G89.29 Other chronic pain (principal); M51.17 Intervertebral disc disorders with radiculopathy, lumbosacral region; E11.9 Type 2 diabetes mellitus without complications; N52.9 Male erectile dysfunction, unspecified; E78.5 Hyperlipidemia, unspecified; I10 Essential (primary) hypertension; Z87.442 Personal history of urinary calculi; Z79.82 Long term (current) use of aspirin; Z79.84 Long term (current) use of oral hypoglycemic drugs; Z79.899 Other long term (current) drug therapy; Z88.8 Allergy status to other drugs, medicaments and biological substances

== ENCOUNTER → 2017-07-24 | Outpatient (CLI) | payer OTHER, MEDICARE | LOC: M PAIN 11:15 | DX: G89.29 Other chronic pain (principal); M51.17 Intervertebral disc disorders with radiculopathy, lumbosacral region; E11.9 Type 2 diabetes mellitus without complications; I10 Essential (primary) hypertension; E78.5 Hyperlipidemia, unspecified; Z79.82 Long term (current) use of aspirin; Z79.84 Long term (current) use of oral hypoglycemic drugs; Z79.899 Other long term (current) drug therapy; Z88.5 Allergy status to narcotic agent; Z98.890 Other specified postprocedural states | CPT/HCPCS: G0463 ==

== ENCOUNTER → 2017-09-25 | Outpatient (CLI) | payer OTHER, MEDICARE | LOC: M PAIN 11:00 | DX: M51.17 Intervertebral disc disorders with radiculopathy, lumbosacral region (principal); E11.9 Type 2 diabetes mellitus without complications; E78.5 Hyperlipidemia, unspecified; I10 Essential (primary) hypertension; Z79.4 Long term (current) use of insulin; Z79.82 Long term (current) use of aspirin; Z79.899 Other long term (current) drug therapy; Z88.5 Allergy status to narcotic agent | CPT/HCPCS: G0463 ==

== ENCOUNTER → 2017-10-27 | Outpatient (CLI) | payer OTHER, MEDICARE | END | disposition home or self-care (01) | LOC: M PAIN 14:15 | DX: G89.29 Other chronic pain (principal); M53.3 Sacrococcygeal disorders, not elsewhere classified; M51.17 Intervertebral disc disorders with radiculopathy, lumbosacral region; E11.9 Type 2 diabetes mellitus without complications; E78.5 Hyperlipidemia, unspecified; I10 Essential (primary) hypertension; Z79.899 Other long term (current) drug therapy; Z79.82 Long term (current) use of aspirin; Z79.4 Long term (current) use of insulin; Z88.8 Allergy status to other drugs, medicaments and biological substances | CPT/HCPCS: G0463 ==

== ENCOUNTER 2017-12-22 17:10 | Emergency (ER) | payer OTHER, MEDICARE | END 2017-12-22 19:50 | disposition home or self-care (01) | LOC: M ED 17:10 | DX: T88.59XA Other complications of anesthesia, initial encounter (principal); R20.0 Anesthesia of skin; Y84.8 Other medical procedures as the cause of abnormal reaction of the patient, or of later complication, without mention of misadventure at the time of the procedure; E11.9 Type 2 diabetes mellitus without complications; Z87.442 Personal history of urinary calculi; Z88.5 Allergy status to narcotic agent; Z79.899 Other long term (current) drug therapy; Z79.82 Long term (current) use of aspirin; Z79.4 Long term (current) use of insulin | CPT/HCPCS: 99283 ==

== ENCOUNTER → 2018-01-19 | Outpatient (CLI) | payer OTHER, MEDICARE | LOC: M PAIN 10:30 | DX: M53.3 Sacrococcygeal disorders, not elsewhere classified (principal); M51.17 Intervertebral disc disorders with radiculopathy, lumbosacral region; E11.9 Type 2 diabetes mellitus without complications; E78.5 Hyperlipidemia, unspecified; I10 Essential (primary) hypertension; Z79.4 Long term (current) use of insulin; Z79.82 Long term (current) use of aspirin; Z79.899 Other long term (current) drug therapy; Z88.5 Allergy status to narcotic agent; Z86.79 Personal history of other diseases of the circulatory system | CPT/HCPCS: G0463 ==

== ENCOUNTER → 2018-03-25 | Outpatient (CLI) | payer OTHER, MEDICARE | LOC: M PAIN 10:30 | DX: M53.3 Sacrococcygeal disorders, not elsewhere classified (principal); M51.17 Intervertebral disc disorders with radiculopathy, lumbosacral region; E11.9 Type 2 diabetes mellitus without complications; E78.5 Hyperlipidemia, unspecified; I10 Essential (primary) hypertension; Z79.4 Long term (current) use of insulin; Z79.82 Long term (current) use of aspirin; Z79.899 Other long term (current) drug therapy; Z88.5 Allergy status to narcotic agent | CPT/HCPCS: G0463 ==

== ENCOUNTER → 2018-06-25 | Outpatient (CLI) | payer OTHER, MEDICARE ==
[~2018-06-25] MED LIST changes: +ATOR1TAB21; +BASA100I SC; +GLYB25TA PO
--- NOTE | 2018-07-19 01:50 | ECWPNPC ---
PATIENT NAME: DARCY THOMASON : 1945 GENDER: MALE VISIT DATE: 06/25/2018 DISCHARGE DATE: 06/25/18 1137 VISIT LOCKED DATE TIME: PHYSICIAN: SARABJIT MIRANDA RESOURCE: SARABJIT MIRANDA REASON FOR APPOINTMENT 1. W/C BACK HISTORY OF PRESENT ILLNESS HISTORY OF PRESENT ILLNESS: HERE FOR F/U OF CHRONIC LOW BACK PAIN.THIS IS A WORK RELATED INJURY WITH DOI SEPTEMBER 2012 WHILE EMPLOYED AT [employer].RATING PAIN VAS 3/10.PAIN IS DESCRIBED INTERMITTENT ,BURNING AND ACHING PAIN.PAIN IS LOCATED RIGHT LOW BACK WITH RADIATION INTO RIGHT POSTERIOR BUTTOCK AND THIGH.PAIN IS AGGREVATED WITH BENDING OR LIFTING.REVIEWED MRI L/S SPINE ORDERE BY ME AND DONE 05/24/18 WITH PATIENT.DISCUSSED TREATMENT OPTIONS. PAIN THE PATIENT DESCRIBES THE PAIN... THE PATIENT DESCRIBES THE PAIN... THE PATIENT DESCRIBES THE PAIN... THE PATIENT DESCRIBES THE PAIN... THE PATIENT DESCRIBES THE PAIN... FALL RISK SCREENING: SCREENING :NO FALLS IN THE PAST YEAR CURRENT MEDICATIONS TAKING LANTUS 100 UNIT/ML SOLUTION 12 UNITS SUBCUTANEOUS AT NIGHT TAKING ACTOS 30 MG TABLET 1 TABLET ORALLY EVERY OTHER DAY TAKING ATARAX 25MG TABLET DIRECTED ORAL TAKING VITAMIN C 500 MG DIRECTED ORALLY TWICE DAILY TAKING ASPIR-81 81 MG TABLET DELAYED RELEASE 1 TABLET ORALLY ONCE A DAY TAKING DAILY MULTI TABLET DIRECTED ORALLY ONCE DAILY TAKING METFORMIN HCL 500 MG TABLET 4 TABS AT ONCE ORALLY ONCE DAILY TAKING MAGNESIUM 500 MG TABLET DIRECTED ORALLY ONCE DAILY TAKING FISH OIL 1000 MG CAPSULE 1 CAP ORALLY ONCE DAILY TAKING PRILOSEC 40 MG CAPSULE DELAYED RELEASE 1 CAPSULE ORALLY ONCE A DAY TAKING JANUVIA 100 MG TABLET 1 TABLET ORALLY ONCE A DAY TAKING LIPITOR 20 MG TABLET 1 TABLET ORALLY ONCE A DAY TAKING GLYBURIDE 1 TAB 2.5 NG ORAL ONCE DAILY TAKING VITAMIN D (CHOLECALCIFEROL) 1000 UNIT CAPSULE 1 CAPSULE ORALLY ONCE A DAY TAKING TRAVATAN 1 DROP EACH EYE AT BEDTIME MEDICATION LIST REVIEWED AND RECONCILED WITH THE PATIENT PAST MEDICAL HISTORY KIDNEY STONES DIABETES MALLITUS ERECTILE DYSFUNCTION HYPERLIPIDEMIA HYPERTENSION PNEUMONIA 06/2017 LOW BACK PAIN ALLERGIES DEMEROL: NAUSEA/VOMITING: SIDE EFFECTS SURGICAL HISTORY APPENDECTOMY 2007 ESWL VASECTOMY 1988 OPEN HEART SURGURY LEFT ANKLE WITH 2 SCREWS 1985 LEFT HAND TRIGGER FINGER 2006 CATARACTS REMOVED BOTH EYES CHOLECYSTECTOMY APR 2017 FAMILY HISTORY FATHER: , DIAGNOSED WITH CANCER MOTHER: , DIAGNOSED WITH HEART DISEASE 1DAUGHTER(S) - HEALTHY. SOCIAL HISTORY GENERAL: TOBACCO USE ARE YOU A:NONSMOKER ALCOHOL SCREENING DID YOU HAVE A DRINK CONTAINING ALCOHOL IN THE PAST YEAR?NO POINTS0 INTERPRETATIONNEGATIVE RECREATIONAL DRUG USE DRUG USE?NO CAFFEINE CAFFEINE USE?YES HOW OFTEN AND HOW MUCH? 1 CUP COFFEE/DAY MU-ISM [id number] SCIENTOLOGIST LANGUAGE LANGUAGES SPOKEN:GUAMANIAN LEARNING BARRIERS / SPECIAL NEEDS HEARING IMPAIRED?YES : [place]-- NO HEARING AIDS VISION IMPAIRED?YES :CORRECTIVE LENSES COGNITIVELY IMPAIRED?NO READINESS TO LEARN?YES LEARNING PREFERENCES?NO LEARNING CAPABILITIES PRESENT?YES EMOTIONAL BARRIERS?NO SPECIAL DEVICES?NO BUSINESS ASSOCIATE NEEDED?NO DOMESTIC VIOLENCE DO YOU FEEL SAFE IN YOUR ENVIRONMENT?YES OCCUPATION: RETIRED. NEW PATIENT PAIN DIARY TODAY'S VISITNOTES FROM 0-10, WHAT LEVEL IS YOUR PAIN TODAY?4 PAIN CLINIC PFS, CLERGY, PUBLIC HEALTH REFERRALS PFS REFERRAL NEEDED?NO CLERGY REFERRAL NEEDED?NO PUBLIC HEALTH REFERRAL NEEDED?NO WAS THE PROVIDER NOTIFIED OF ANY PERTINENT INFO?NO N/A HAS THE PATIENT BEEN EDUCATED REGARDING HIS/HER PLAN OF CARE?YES HAS THE PATIENT BEEN EDUCATED REGARDING PAIN, THE RISK FOR PAIN, THE IMPORTANCE OF EFFECTIVE PAIN MANAGEMENT, AND THE PAIN ASSESSMENT PROCESS?YES ADVANCE DIRECTIVE ADVANCE DIRECTIVE DISCUSSED WITH PATIENT:YES 01/19/18 PT DOES NOT HAVE ANY ADVANCED DIRECTIVES AND DECLINES INFORMATION ON HCP. AD 12/22/17 1100 REVIEWED WITH PT. AD01/19/18 1157 REVIEWED WITH PT. KOJOD WITH PATIENT 06/25/18 1105 JS. HOSPITALIZATION/MAJOR DIAGNOSTIC PROCEDURE SURGERY RELATED PNEUMONIA JUN 2017 REVIEW OF SYSTEMS REVIEWED BY: PROVIDER: SARABJIT FRAZIER . CONSTITUTIONAL: ANY CHANGE IN YOUR MEDICAL CONDITION? NO . CHILLS NO . FEVER NO . INFECTION: DO YOU HAVE NEW INFECTIONS? NO . DO YOU HAVE HISTORY OF MRSA? NO . MUSCULOSKELETAL: ANY NEW PATTERNS OF PAIN OR NUMBNESS? NO . GASTROENTEROLOGY: ANY NEW CHANGE IN BOWEL CONTROL? NO . GENITOURINARY: ANY NEW CHANGE IN BLADDER CONTROL? NO . IS THERE A CHANCE YOU COULD BE ? NO . HEMATOLOGY/LYMPH: DO YOU TAKE ANY BLOOD THINNERS? (FOR EXAMPLE- COUMADIN, PLAVIX, AGGRENOX, PLATEL, PRADAXA, OR XARELTO) NO . WHEN WAS YOUR LAST DOSE? DATE: TIME: . NEUROLOGY: HAVE YOU FALLEN IN THE PAST 6 MONTHS? NO . ANY NEW EXTREMITY NUMBNESS OR WEAKNESS? NO . CARDIOLOGY: DO YOU HAVE A PACEMAKER OR DEFIBRILLATOR? NO . RESPIRATORY: HAVE YOU BEEN SICK IN THE PAST WEEK? NO . FEVER NO . FLU LIKE SYMPTOMS? NO . COUGH NO . INTEGUMENTARY: DO YOU HAVE ANY RASHES OR OPEN SORES? NO . ALLERGIC/IMMUNO: ARE YOU ALLERGIC TO SHELLFISH OR IV DYE? NO . ANY NEW ALLERGIES? NO . PSYCHIATRIC: DO YOU HAVE THOUGHTS OF HURTING YOURSELF OR SOMEONE ELSE? NO . ARE YOU ABUSED, NEGLECTED, OR IN AN UNSAFE ENVIRONMENT? NO . ENDOCRINOLOGY: ARE YOU DIABETIC? YES, FSBS 126 AT 0800 THIS AM . OTHER: DO YOU NEED ANY PRESCRIPTIONS? NO . IF YES, PLEASE LIST: ____ . ANY NEW PROBLEMS WITH YOUR MEDICATIONS? NO . WHEN DID YOU LAST EAT? ____ . WHEN DID YOU LAST DRINK? ____ . WHAT DID YOU LAST DRINK? ____ . NAME OF PERSON DRIVING YOU HOME? ____ . DO YOU HAVE ANY OTHER QUESTIONS OR CONCERNS NO . VITAL SIGNS WT 188.8 LBS, HT 58 IN, BMI 39.45 INDEX, BP 157/74 MM HG, HR 70 /MIN, RR 18 /MIN, TEMP 97.6 F, OXYGEN SAT % 96%, NA INITIALS AW 1105. EXAMINATION GENERAL EXAMINATION: GENERAL APPEARANCE:ALERT,NO ACUTE DISTRESS. PSYCHAFFECT FLAT. LUNGS:LUNG KEYES ARE CLEAR TO AUSCULTATION BILATERALLY. GOOD MOVEMENT OF AIR. HEART:S1, S2 IN A REGULAR RATE AND RHYTHM. NO SIGNIFICANT MURMURS, RUBS OR GALLOPS NOTED. MUSCULOSKELETAL:SLE-POSITIVE BILAT AT 45 DEGREES , MUSCLE STRENGTH TESTING 5/5 BILATERAL LOWER EXTREMITIES. NEUROLOGIC EXAM:NORMAL SENSATION TO LIGHT TOUCH BILAT. LOWER EXTREMITIES. ASSESSMENTS SACROILIAC JOINT PAIN - M53.3 (PRIMARY) INTERVERTEBRAL DISC DISORDERS WITH RADICULOPATHY, LUMBOSACRAL REGION - M51.17 (PRIMARY) TREATMENT SACROILIAC JOINT PAIN NOTES: [facility]/RADIOFREQUENCY DENERVATION LUMBAR FACETS, PATIENT WAS ADVISED TO START A WALKING PROGRAM TO STRENGTHEN LUMBAR PARASPINAL MUSCLES AND IMPROVE MOBILITY. THEY WERE ADVISED THAT THIS WILL IMPROVE WEIGHT LOSS AND ALSO DEPRESSION/FIBROMYALGIA SYMPTOMS. ADVISED TO WALK 10 MINUTES EVERY OTHER DAY ON A FLAT SURFACE. EMPHASIZED THE IMPORTANCE OF DOING THIS CONSISTANTLY AND NOT SPORATICALLY TO AVOID INJURY. STRONG ADVISED NOT TO DO MORE THAN 10 MINUTES EVERY OTHER DAY FOR THE FIRST 4 WEEKS. PROCEDURES PN WORKMANS' COMP OPINION IN YOUR OPINION, WAS THE INCIDENT THAT THE PATIENT DESCRIBED THE COMPETENT MEDICAL CAUSE OF THIS INJURY/ILLNESS? YES ARE THE PATIENT'S COMPLAINTS CONSISTENT WITH HIS/HER HISTORY OF THE INJURY/ILLNESS? YES IS THE PATIENT'S HISTORY OF THE INJURY/ILLNESS CONSISTENT WITH YOUR OBJECTIVE FINDING? YES WHAT IS THE PERCENTAGE OF TEMPORARY IMPAIRMENT? MODERATE TO MARKED = 66.7% IS THE PATIENT WORKING? NO DOCTOR ON SITE: HUSSAIN GUPTA MD PROCEDURE CODES FA211 ESTABILISHED PATIENT [facility] CHARGE DISPOSITION & COMMUNICATION FOLLOW UP 6 MONTHS ELECTRONICALLY SIGNED BY FREDDIE CORONEL ON 07/18/2018 AT 01:04 PM EST DISCLAIMER : THIS IS A VISIT SUMMARY EXTRACTED FROM THE [employer] CHART. IT IS NOT A COPY OF THE [employer] PROGRESS NOTE. KIM
== END ==
LOC: M PAIN 11:00
PROVIDERS: ATTEND Nurse Practitioner Family
DX: M53.3 Sacrococcygeal disorders, not elsewhere classified (principal); M51.17 Intervertebral disc disorders with radiculopathy, lumbosacral region; G89.29 Other chronic pain; E11.9 Type 2 diabetes mellitus without complications; E78.5 Hyperlipidemia, unspecified; I10 Essential (primary) hypertension; E66.01 Morbid (severe) obesity due to excess calories; Z68.39 Body mass index [BMI] 39.0-39.9, adult; Z79.4 Long term (current) use of insulin; Z79.82 Long term (current) use of aspirin; Z79.899 Other long term (current) drug therapy; Z88.5 Allergy status to narcotic agent; Z86.79 Personal history of other diseases of the circulatory system

== ENCOUNTER → 2019-01-07 | Outpatient (CLI) | payer OTHER, MEDICARE ==
[~2019-01-07] MED LIST changes: -ASPI81CH PO; +ASPI81CH49 PO
--- NOTE | 2019-01-22 00:02 | ECWPNPC ---
PATIENT NAME: DARCY THOMASON : 1945 GENDER: MALE VISIT DATE: 01/07/2019 DISCHARGE DATE: 01/07/19 1501 VISIT LOCKED DATE TIME: PHYSICIAN: SARABJIT MIRANDA RESOURCE: SARABJIT MIRANDA REASON FOR APPOINTMENT 1. W/C BACK HISTORY OF PRESENT ILLNESS HISTORY OF PRESENT ILLNESS: HERE FOR F/U OF CHRONIC LOW BACK PAIN.THIS IS A WORK RELATED INJURY WITH DOI SEPTEMBER 2012 WHILE EMPLOYED AT [employer].RATING PAIN VAS 5/10.PAIN IS DESCRIBED INTERMITTENT ,BURNING AND ACHING PAIN.PAIN IS LOCATED RIGHT LOW BACK WITH RADIATION INTO RIGHT POSTERIOR BUTTOCK AND THIGH.PAIN IS AGGREVATED WITH BENDING OR LIFTING. PAIN THE PATIENT DESCRIBES THE PAIN... THE PATIENT DESCRIBES THE PAIN... THE PATIENT DESCRIBES THE PAIN... THE PATIENT DESCRIBES THE PAIN... THE PATIENT DESCRIBES THE PAIN... THE PATIENT DESCRIBES THE PAIN... FALL RISK SCREENING: SCREENING :NO FALLS REPORTED IN THE LAST YEAR CURRENT MEDICATIONS TAKING ACTOS 30 MG TABLET 1 TABLET ORALLY EVERY OTHER DAY TAKING ATARAX 25MG TABLET DIRECTED ORAL TAKING VITAMIN C 500 MG DIRECTED ORALLY TWICE DAILY TAKING ASPIR-81 81 MG TABLET DELAYED RELEASE 1 TABLET ORALLY ONCE A DAY TAKING DAILY MULTI TABLET DIRECTED ORALLY ONCE DAILY TAKING METFORMIN HCL 500 MG TABLET 4 TABS AT ONCE ORALLY ONCE DAILY TAKING MAGNESIUM 500 MG TABLET DIRECTED ORALLY ONCE DAILY TAKING FISH OIL 1000 MG CAPSULE 1 CAP ORALLY ONCE DAILY TAKING PRILOSEC 40 MG CAPSULE DELAYED RELEASE 1 CAPSULE ORALLY ONCE A DAY TAKING JANUVIA 100 MG TABLET 1 TABLET ORALLY ONCE A DAY TAKING LIPITOR 20 MG TABLET 1 TABLET ORALLY ONCE A DAY TAKING GLYBURIDE 1 TAB 2.5 NG ORAL ONCE DAILY TAKING VITAMIN D (CHOLECALCIFEROL) 1000 UNIT CAPSULE 1 CAPSULE ORALLY ONCE A DAY TAKING TRAVATAN 1 DROP EACH EYE AT BEDTIME NOT-TAKING LANTUS 100 UNIT/ML SOLUTION 12 UNITS SUBCUTANEOUS AT NIGHT MEDICATION LIST REVIEWED AND RECONCILED WITH THE PATIENT PAST MEDICAL HISTORY KIDNEY STONES DIABETES MALLITUS ERECTILE DYSFUNCTION HYPERLIPIDEMIA HYPERTENSION PNEUMONIA 06/2017 LOW BACK PAIN ALLERGIES DEMEROL: NAUSEA/VOMITING - SIDE EFFECTS SURGICAL HISTORY APPENDECTOMY 2007 ESWL VASECTOMY 1988 OPEN HEART SURGURY LEFT ANKLE WITH 2 SCREWS 1984 LEFT HAND TRIGGER FINGER 2005 CATARACTS REMOVED BOTH EYES CHOLECYSTECTOMY APR 2017 FAMILY HISTORY FATHER: , DIAGNOSED WITH CANCER MOTHER: , HEART DISEASE 1DAUGHTER(S) - HEALTHY. SOCIAL HISTORY GENERAL: TOBACCO USE ARE YOU A: NONSMOKER. LANGUAGE LANGUAGES SPOKEN:RUSSIAN DOMESTIC VIOLENCE DO YOU FEEL SAFE IN YOUR ENVIRONMENT?YES NEW PATIENT PAIN DIARY TODAY'S VISITNOTES FROM 0-10, WHAT LEVEL IS YOUR PAIN TODAY?4 RECREATIONAL DRUG USE DRUG USE?NO LEARNING BARRIERS / SPECIAL NEEDS HEARING IMPAIRED?YES : [place]-- NO HEARING AIDS VISION IMPAIRED?YES :CORRECTIVE LENSES COGNITIVELY IMPAIRED?NO READINESS TO LEARN?YES LEARNING PREFERENCES?NO LEARNING CAPABILITIES PRESENT?YES EMOTIONAL BARRIERS?NO SPECIAL DEVICES?NO PRIVACY COMPLIANCE MANAGER NEEDED?NO PAIN CLINIC PFS, CLERGY, PUBLIC HEALTH REFERRALS PFS REFERRAL NEEDED?NO CLERGY REFERRAL NEEDED?NO PUBLIC HEALTH REFERRAL NEEDED?NO WAS THE PROVIDER NOTIFIED OF ANY PERTINENT INFO?NO N/A HAS THE PATIENT BEEN EDUCATED REGARDING HIS/HER PLAN OF CARE?YES HAS THE PATIENT BEEN EDUCATED REGARDING PAIN, THE RISK FOR PAIN, THE IMPORTANCE OF EFFECTIVE PAIN MANAGEMENT, AND THE PAIN ASSESSMENT PROCESS?YES LATEX QUESTIONNAIRE LATEX ALLERGY : HAVE YOU EVER DEVELOPED ANY TYPE OF REACTION AFTER HANDLING LATEX PRODUCTS SUCH RUBBER GLOVES, CONDOMS, DIAPHRAGMS, BALLOONS, SOCKS, OR UNDERWEAR?NO LATEX ALLERGY : HAVE YOU EVER DEVELOPED ANY TYPE OF REACTION DURING OR AFTER DENTAL APPOINTMENT, VAGINAL/RECTAL EXAMINATION, SURGICAL PROCEDURE, OR ANY OTHER EXPOSURE?NO LATEX RISK : HAVE YOU EVER HAD ANY DIFFICULTY BREATHING OR HIVES AFTER EATING OR HANDLING ANY FRUITS, OR VEGETABLES; SUCH KIWI, BANANAS, STONE FRUITS, OR CHESTNUTSNO LATEX RISK : DO YOU HAVE A PREVIOUS PERSONAL HISTORY OF MORE THAN NINE SURGERIES, SPINA BIFIDA, OR REPEATED CATHERIZATIONS? NO LATEX RISK : ARE YOU FREQUENTLY EXPOSED TO LATEX PRODUCTS IN YOUR OCCUPATION?NO DATE ASKED : 01/07/2019 CAFFEINE CAFFEINE USE?YES HOW OFTEN AND HOW MUCH? 1 CUP COFFEE/DAY ADVANCE DIRECTIVE ADVANCE DIRECTIVE DISCUSSED WITH PATIENT:YES PATIENT DECLINES HCP INFORMATION AT THIS TIME. RASTAFARI [id number] RASTAFARI ALCOHOL SCREENING DID YOU HAVE A DRINK CONTAINING ALCOHOL IN THE PAST YEAR?NO POINTS0 INTERPRETATIONNEGATIVE OCCUPATION: RETIRED. 12/22/17 1100 REVIEWED WITH PT. AD01/19/18 1157 REVIEWED WITH PT. JESSIWED WITH PATIENT 06/25/18 1105 JSREVIEWED WITH PATIENT 01/07/19 1444 JS. HOSPITALIZATION/MAJOR DIAGNOSTIC PROCEDURE SURGERY RELATED PNEUMONIA JUN 2017 REVIEW OF SYSTEMS REVIEWED BY: PROVIDER: SARABJIT FRAZIER . CONSTITUTIONAL: ANY CHANGE IN YOUR MEDICAL CONDITION? NO . CHILLS NO . FEVER NO . INFECTION: DO YOU HAVE NEW INFECTIONS? NO . DO YOU HAVE HISTORY OF MRSA? NO . MUSCULOSKELETAL: ANY NEW PATTERNS OF PAIN OR NUMBNESS? NO . GASTROENTEROLOGY: ANY NEW CHANGE IN BOWEL CONTROL? NO . GENITOURINARY: ANY NEW CHANGE IN BLADDER CONTROL? NO . IS THERE A CHANCE YOU COULD BE ? NO . HEMATOLOGY/LYMPH: DO YOU TAKE ANY BLOOD THINNERS? (FOR EXAMPLE- COUMADIN, PLAVIX, AGGRENOX, PLATEL, PRADAXA, OR XARELTO) NO . WHEN WAS YOUR LAST DOSE? DATE: TIME: . NEUROLOGY: HAVE YOU FALLEN IN THE PAST 12 MONTHS? NO . ANY NEW EXTREMITY NUMBNESS OR WEAKNESS? NO . CARDIOLOGY: DO YOU HAVE A PACEMAKER OR DEFIBRILLATOR? NO . RESPIRATORY: HAVE YOU BEEN SICK IN THE PAST WEEK? NO . FEVER NO . FLU LIKE SYMPTOMS? NO . COUGH NO . INTEGUMENTARY: DO YOU HAVE ANY RASHES OR OPEN SORES? NO . ALLERGIC/IMMUNO: ARE YOU ALLERGIC TO IV DYE? NO . ANY NEW ALLERGIES? NO . PSYCHIATRIC: DO YOU HAVE THOUGHTS OF HURTING YOURSELF OR SOMEONE ELSE? NO . ARE YOU ABUSED, NEGLECTED, OR IN AN UNSAFE ENVIRONMENT? NO . ENDOCRINOLOGY: ARE YOU DIABETIC? YES . OTHER: DO YOU NEED ANY PRESCRIPTIONS? NO . IF YES, PLEASE LIST: ____ . ANY NEW PROBLEMS WITH YOUR MEDICATIONS? NO . WHEN DID YOU LAST EAT? ____ . WHEN DID YOU LAST DRINK? ____ . WHAT DID YOU LAST DRINK? ____ . NAME OF PERSON DRIVING YOU HOME? ____ . DO YOU HAVE ANY OTHER QUESTIONS OR CONCERNS NO . VITAL SIGNS WT 191.6 LBS, HT 58 IN, BMI 40.04 INDEX, BP 138/70 MM HG, HR 69 /MIN, RR 18 /MIN, TEMP 97.6 F, OXYGEN SAT % 99%, SAFE IN ENV? (Y/N) YES, NA INITIALS SC14:37, REVIEWED BY: ANTWAN. EXAMINATION GENERAL EXAMINATION: GENERAL ALERT,NO ACUTE DISTRESS. PSYCH AFFECT FLAT. LUNGS: LUNG KEYES ARE CLEAR TO AUSCULTATION BILATERALLY. GOOD MOVEMENT OF AIR. HEART: S1, S2 IN A REGULAR RATE AND RHYTHM. NO SIGNIFICANT MURMURS, RUBS OR GALLOPS NOTED. ASSESSMENTS SACROILIAC JOINT PAIN - M53.3 (PRIMARY) INTERVERTEBRAL DISC DISORDERS WITH RADICULOPATHY, LUMBOSACRAL REGION - M51.17 (PRIMARY) TREATMENT SACROILIAC JOINT PAIN NOTES: CONTINUE CONSERVATIVE CARE/HOME EXCERSISE. PROCEDURE CODES FA211 ESTABILISHED PATIENT [facility] CHARGE DISPOSITION & COMMUNICATION FOLLOW UP 6 MONTHS ELECTRONICALLY SIGNED BY FREDDIE CORONEL ON 01/21/2019 AT 12:59 PM EDT DISCLAIMER : THIS IS A VISIT SUMMARY EXTRACTED FROM THE [employer] CHART. IT IS NOT A COPY OF THE [employer] PROGRESS NOTE. JOSED
== END ==
LOC: M PAIN 14:30
PROVIDERS: ATTEND Nurse Practitioner Family
DX: M53.3 Sacrococcygeal disorders, not elsewhere classified (principal); M51.17 Intervertebral disc disorders with radiculopathy, lumbosacral region; E11.9 Type 2 diabetes mellitus without complications; N52.9 Male erectile dysfunction, unspecified; E78.5 Hyperlipidemia, unspecified; I10 Essential (primary) hypertension; Z87.442 Personal history of urinary calculi; Z98.41 Cataract extraction status, right eye; Z98.42 Cataract extraction status, left eye; Z90.49 Acquired absence of other specified parts of digestive tract; Z88.8 Allergy status to other drugs, medicaments and biological substances; Z79.82 Long term (current) use of aspirin; Z79.84 Long term (current) use of oral hypoglycemic drugs; Z79.899 Other long term (current) drug therapy

== ENCOUNTER → 2019-07-08 | Outpatient (CLI) | payer OTHER, MEDICARE ==
[~2019-07-08] MED LIST changes: +METF-791 PO; -METF500T4 PO
--- NOTE | 2019-07-26 06:43 | ECWPNPC ---
PATIENT NAME: DARCY THOMASON : 1945 GENDER: MALE VISIT DATE: 07/08/2019 DISCHARGE DATE: 07/08/19 1137 VISIT LOCKED DATE TIME: PHYSICIAN: SARABJIT MIRANDA RESOURCE: SARABJIT MIRANDA REASON FOR APPOINTMENT 1. 6 MONTHS, W/C HISTORY OF PRESENT ILLNESS HISTORY OF PRESENT ILLNESS: HERE FOR F/U OF CHRONIC LOW BACK PAIN.THIS IS A WORK RELATED INJURY WITH DOI SEPTEMBER 2012 WHILE EMPLOYED AT [employer].RATING PAIN VAS 2-4/10.PAIN IS DESCRIBED INTERMITTENT ,BURNING AND ACHING PAIN.PAIN IS LOCATED RIGHT LOW BACK WITH RADIATION INTO RIGHT POSTERIOR BUTTOCK AND THIGH.PAIN IS AGGREVATED WITH BENDING OR LIFTING.HAS BEEN DOING HOME EXCERSISE AND STRETCHING WHICH HAS BEEN HELPFUL. PAIN THE PATIENT DESCRIBES THE PAIN... FALL RISK SCREENING: SCREENING :NO FALLS REPORTED IN THE LAST YEAR CURRENT MEDICATIONS TAKING ACTOS 30 MG TABLET 1 TABLET ORALLY EVERY OTHER DAY TAKING VITAMIN C 500 MG DIRECTED ORALLY TWICE DAILY TAKING DAILY MULTI TABLET DIRECTED ORALLY ONCE DAILY TAKING METFORMIN HCL 500 MG TABLET 4 TABS AT ONCE ORALLY ONCE DAILY TAKING MAGNESIUM 500 MG TABLET DIRECTED ORALLY ONCE DAILY TAKING FISH OIL 1000 MG CAPSULE 1 CAP ORALLY ONCE DAILY TAKING PRILOSEC 40 MG CAPSULE DELAYED RELEASE 1 CAPSULE ORALLY ONCE A DAY TAKING JANUVIA 100 MG TABLET 1 TABLET ORALLY ONCE A DAY TAKING LIPITOR 20 MG TABLET 1 TABLET ORALLY ONCE A DAY TAKING GLYBURIDE 1 TAB 2.5 NG ORAL ONCE DAILY TAKING VITAMIN D (CHOLECALCIFEROL) 1000 UNIT CAPSULE 1 CAPSULE ORALLY ONCE A DAY TAKING TRAVATAN 1 DROP EACH EYE AT BEDTIME NOT-TAKING LANTUS 100 UNIT/ML SOLUTION 12 UNITS SUBCUTANEOUS AT NIGHT NOT-TAKING ATARAX 25MG TABLET DIRECTED ORAL NOT-TAKING ASPIR-81 81 MG TABLET DELAYED RELEASE 1 TABLET ORALLY ONCE A DAY MEDICATION LIST REVIEWED AND RECONCILED WITH THE PATIENT PAST MEDICAL HISTORY KIDNEY STONES DIABETES MALLITUS ERECTILE DYSFUNCTION HYPERLIPIDEMIA HYPERTENSION PNEUMONIA 06/2017 LOW BACK PAIN ALLERGIES DEMEROL: NAUSEA/VOMITING - SIDE EFFECTS SURGICAL HISTORY APPENDECTOMY 2007 ESWL VASECTOMY 1988 OPEN HEART SURGURY LEFT ANKLE WITH 2 SCREWS 1984 LEFT HAND TRIGGER FINGER 2006 CATARACTS REMOVED BOTH EYES CHOLECYSTECTOMY APR 2017 FAMILY HISTORY FATHER: , DIAGNOSED WITH OTHER MALIGNANT NEOPLASM OF UNSPECIFIED SITE MOTHER: , UNSPECIFIED HEART DISEASE 1DAUGHTER(S) - HEALTHY. SOCIAL HISTORY GENERAL: TOBACCO USE ARE YOU A: NONSMOKER. LANGUAGE LANGUAGES SPOKEN:WOLOF DOMESTIC VIOLENCE DO YOU FEEL SAFE IN YOUR ENVIRONMENT?YES NEW PATIENT PAIN DIARY TODAY'S VISITNOTES FROM 0-10, WHAT LEVEL IS YOUR PAIN TODAY?4 RECREATIONAL DRUG USE DRUG USE?NO LEARNING BARRIERS / SPECIAL NEEDS HEARING IMPAIRED?YES VISION IMPAIRED?YES COGNITIVELY IMPAIRED?NO : UPPER [place]-- NO HEARING AIDS :CORRECTIVE LENSES READINESS TO LEARN?YES LEARNING PREFERENCES?NO LEARNING CAPABILITIES PRESENT?YES EMOTIONAL BARRIERS?NO SPECIAL DEVICES?NO MANAGER BUSINESS BANKING NEEDED?NO PAIN CLINIC PFS, CLERGY, PUBLIC HEALTH REFERRALS PFS REFERRAL NEEDED?NO CLERGY REFERRAL NEEDED?NO PUBLIC HEALTH REFERRAL NEEDED?NO WAS THE PROVIDER NOTIFIED OF ANY PERTINENT INFO?NO N/A HAS THE PATIENT BEEN EDUCATED REGARDING HIS/HER PLAN OF CARE?YES HAS THE PATIENT BEEN EDUCATED REGARDING PAIN, THE RISK FOR PAIN, THE IMPORTANCE OF EFFECTIVE PAIN MANAGEMENT, AND THE PAIN ASSESSMENT PROCESS?YES LATEX QUESTIONNAIRE LATEX ALLERGY : HAVE YOU EVER DEVELOPED ANY TYPE OF REACTION AFTER HANDLING LATEX PRODUCTS SUCH RUBBER GLOVES, CONDOMS, DIAPHRAGMS, BALLOONS, SOCKS, OR UNDERWEAR?NO LATEX ALLERGY : HAVE YOU EVER DEVELOPED ANY TYPE OF REACTION DURING OR AFTER DENTAL APPOINTMENT, VAGINAL/RECTAL EXAMINATION, SURGICAL PROCEDURE, OR ANY OTHER EXPOSURE?NO LATEX RISK : HAVE YOU EVER HAD ANY DIFFICULTY BREATHING OR HIVES AFTER EATING OR HANDLING ANY FRUITS, OR VEGETABLES; SUCH KIWI, BANANAS, STONE FRUITS, OR CHESTNUTSNO LATEX RISK : DO YOU HAVE A PREVIOUS PERSONAL HISTORY OF MORE THAN NINE SURGERIES, SPINA BIFIDA, OR REPEATED CATHERIZATIONS? NO LATEX RISK : ARE YOU FREQUENTLY EXPOSED TO LATEX PRODUCTS IN YOUR OCCUPATION?NO DATE ASKED : 01/07/2019 CAFFEINE CAFFEINE USE?YES HOW OFTEN AND HOW MUCH? 1 CUP COFFEE/DAY ADVANCE DIRECTIVE ADVANCE DIRECTIVE DISCUSSED WITH PATIENT:YES 07/08/2019 PATIENT HAS NO ADVANCED DIRECTIVES AND DECLINES HCP INFORMATION AT THIS TIME. JS [facility] [id number] [facility] ALCOHOL SCREENING DID YOU HAVE A DRINK CONTAINING ALCOHOL IN THE PAST YEAR?NO POINTS0 INTERPRETATIONNEGATIVE OCCUPATION: RETIRED. 12/22/17 1100 REVIEWED WITH PT. AD01/19/18 1157 REVIEWED WITH PT. ADREVIEWED WITH PATIENT 06/25/18 1105 JSREVIEWED WITH PATIENT 01/07/19 1444 JSREVIEWED WITH PATIENT 07/08/2019 1055 JS. HOSPITALIZATION/MAJOR DIAGNOSTIC PROCEDURE SURGERY RELATED PNEUMONIA JUN 2017 REVIEW OF SYSTEMS REVIEWED BY: PROVIDER: SARABJIT FRAZIER . CONSTITUTIONAL: ANY CHANGE IN YOUR MEDICAL CONDITION? NO . CHILLS NO . FEVER NO . INFECTION: DO YOU HAVE NEW INFECTIONS? NO . DO YOU HAVE HISTORY OF MRSA? NO . MUSCULOSKELETAL: ANY NEW PATTERNS OF PAIN OR NUMBNESS? NO . GASTROENTEROLOGY: ANY NEW CHANGE IN BOWEL CONTROL? NO . GENITOURINARY: ANY NEW CHANGE IN BLADDER CONTROL? NO . IS THERE A CHANCE YOU COULD BE ? NO . HEMATOLOGY/LYMPH: DO YOU TAKE ANY BLOOD THINNERS? (FOR EXAMPLE- COUMADIN, PLAVIX, AGGRENOX, PLATEL, PRADAXA, OR XARELTO) NO . WHEN WAS YOUR LAST DOSE? DATE: TIME: . NEUROLOGY: HAVE YOU FALLEN IN THE PAST 12 MONTHS? NO . ANY NEW EXTREMITY NUMBNESS OR WEAKNESS? NO . CARDIOLOGY: DO YOU HAVE A PACEMAKER OR DEFIBRILLATOR? NO . RESPIRATORY: HAVE YOU BEEN SICK IN THE PAST WEEK? NO . FEVER NO . FLU LIKE SYMPTOMS? NO . COUGH NO . INTEGUMENTARY: DO YOU HAVE ANY RASHES OR OPEN SORES? NO . ALLERGIC/IMMUNO: ARE YOU ALLERGIC TO IV DYE? NO . ANY NEW ALLERGIES? NO . PSYCHIATRIC: DO YOU HAVE THOUGHTS OF HURTING YOURSELF OR SOMEONE ELSE? NO . ARE YOU ABUSED, NEGLECTED, OR IN AN UNSAFE ENVIRONMENT? NO . ENDOCRINOLOGY: ARE YOU DIABETIC? YES . OTHER: DO YOU NEED ANY PRESCRIPTIONS? NO . IF YES, PLEASE LIST: ____ . ANY NEW PROBLEMS WITH YOUR MEDICATIONS? NO . WHEN DID YOU LAST EAT? ____ . WHEN DID YOU LAST DRINK? ____ . WHAT DID YOU LAST DRINK? ____ . NAME OF PERSON DRIVING YOU HOME? ____ . DO YOU HAVE ANY OTHER QUESTIONS OR CONCERNS NO . VITAL SIGNS WT 195.2 LBS, HT 58 IN, BMI 40.79 INDEX, BP 135/70 MM HG, HR 74 /MIN, RR 16 /MIN, TEMP 97.9 F, OXYGEN SAT % 96%, SAFE IN ENV? (Y/N) YES, REVIEWED BY: ANTWAN. EXAMINATION GENERAL EXAMINATION: GENERAL ALERT,NO ACUTE DISTRESS. PSYCH AFFECT FLAT. LUNGS: LUNG KEYES ARE CLEAR TO AUSCULTATION BILATERALLY. GOOD MOVEMENT OF AIR. HEART: S1, S2 IN A REGULAR RATE AND RHYTHM. NO SIGNIFICANT MURMURS, RUBS OR GALLOPS NOTED. ASSESSMENTS SACROILIAC JOINT PAIN - M53.3 (PRIMARY) INTERVERTEBRAL DISC DISORDERS WITH RADICULOPATHY, LUMBOSACRAL REGION - M51.17 (PRIMARY) PROCEDURES PN WORKMANS' COMP OPINION IN YOUR OPINION, WAS THE INCIDENT THAT THE PATIENT DESCRIBED THE COMPETENT MEDICAL CAUSE OF THIS INJURY/ILLNESS? YES ARE THE PATIENT'S COMPLAINTS CONSISTENT WITH HIS/HER HISTORY OF THE INJURY/ILLNESS? YES IS THE PATIENT'S HISTORY OF THE INJURY/ILLNESS CONSISTENT WITH YOUR OBJECTIVE FINDING? YES WHAT IS THE PERCENTAGE OF TEMPORARY IMPAIRMENT? MODERATE TO MARKED = 66.7% IS THE PATIENT WORKING? NO DOCTOR ON SITE: HUSSAIN GUPTA MD PROCEDURE CODES FA211 ESTABILISHED PATIENT [facility] FACILITY CHARGE DISPOSITION & COMMUNICATION FOLLOW UP 6 MONTHS ELECTRONICALLY SIGNED BY FREDDIE CORONEL ON 07/25/2019 AT 04:26 PM EST DISCLAIMER : THIS IS A VISIT SUMMARY EXTRACTED FROM THE [employer] CHART. IT IS NOT A COPY OF THE [employer] PROGRESS NOTE. KIM
== END ==
LOC: M PAIN 10:45
PROVIDERS: ATTEND Nurse Practitioner Family
DX: M53.3 Sacrococcygeal disorders, not elsewhere classified (principal); M51.17 Intervertebral disc disorders with radiculopathy, lumbosacral region; G89.29 Other chronic pain; E11.9 Type 2 diabetes mellitus without complications; E78.5 Hyperlipidemia, unspecified; I10 Essential (primary) hypertension; Z88.5 Allergy status to narcotic agent; E66.01 Morbid (severe) obesity due to excess calories; Z68.41 Body mass index [BMI] 40.0-44.9, adult; Z79.84 Long term (current) use of oral hypoglycemic drugs; Z79.899 Other long term (current) drug therapy

== ENCOUNTER 2024-06-16 21:59 | Emergency (ER) | payer MEDICARE ==
[~2024-06-16] VITALS: Ht 172.7 cm; Wt 83.1 kg
[~2024-06-16 21:59] MED LIST changes: +GLYB2.5T7 PO; -GLYB25TA PO; -METF-791 PO; +METF-838 PO
[2024-06-16 22:58] LABS: BASO % 0.5 % (0.0-1.0); EOS # 0.2 10^3/uL (0.0-0.5); EOS % 2.7 % (0.0-3.0); HEMATOCRIT 35.3 % (42.0-52.0); KETONE, URINE AUTO RFX NEGATIVE (NEGATIVE); LEUKOCYTE ESTERASE UR AUTO RFX NEGATIVE (NEGATIVE); LYMPH # 1.1 10^3/uL (1.5-5.0); LYMPH % 14.5 % (24.0-44.0); MEAN CORPUSCULAR HEMOGLOBIN 30.7 pg (27.0-33.0); MEAN CORPUSCULAR VOLUME 90.3 fl (80.0-96.0); MONO # 0.7 10^3/uL (0.0-0.8); MONO % 9.3 % (2.0-8.0); MUCUS, URINE RFX SMALL (NEGATIVE); NEUTROPHILS # 5.4 10^3/uL (1.5-8.5); NEUTROPHILS % 72.5 % (36.0-66.0); NITRITE, URINE AUTO RFX NEGATIVE (NEGATIVE); PLATELET COUNT, AUTOMATED 171 10^3/uL (150-450); RBC, URINE AUTO RFX 3 /HPF (0-3); RED BLOOD COUNT 3.91 10^6/uL (4.30-6.10); SQUAM EPITHELIAL CELL UR AURFX 0 /HPF (0-6); WBC, URINE AUTO RFX 0 /HPF (0-3); WHITE BLOOD COUNT 7.4 10^3/uL (4.0-10.0)
[2024-06-17 00:50] LABS: ALBUMIN 3.9 G/DL (3.2-5.2); ALKALINE PHOSPHATASE 99 U/L (40-129); ALT/SGPT 24 U/L (7.0-40); AST/SGOT 18 U/L (<34); BILIRUBIN,DIRECT 0.3 MG/DL (<0.4); BILIRUBIN,TOTAL 0.8 MG/DL (0.3-1.2); BLOOD UREA NITROGEN 29 MG/DL (9-23); CALCIUM LEVEL 8.9 MG/DL (8.3-10.6); CARBON DIOXIDE LEVEL 20 MMOL/L (20-31); CHLORIDE LEVEL 110 MMOL/L (98-107); CREATININE FOR GFR 1.12 MG/DL (0.70-1.30); GLOMERULAR FILTRATION RATE > 60.0 (>42); GLUCOSE, FASTING 220 MG/DL (74-106); LIPASE 29 U/L (12-53); SODIUM LEVEL 140 MMOL/L (136-145); TOTAL PROTEIN 6.2 G/DL (5.7-8.2)
[2024-06-17 01:45] VITALS: BP 181/77; O2SAT 97
[2024-06-17] MEDS ORDERED: PERCOCET PO (01:49)
[2024-06-17] MEDS ORDERED: FLOM0.4C39 PO (01:52)
[2024-06-17] MEDS: PERCOCET 5MG/325MG TAB PO ONE (01:56)
[2024-06-17] MEDS: TAMSULOSIN 0.4 MG CAP PO ONE (01:56)
[2024-06-17 02:00] VITALS: TEMP 97.6
== END 2024-06-17 02:09 | disposition home or self-care (01) ==
LOC: EDBD 21:59 → M ED 22:54
DX: N20.0 Calculus of kidney (principal); E11.9 Type 2 diabetes mellitus without complications; I10 Essential (primary) hypertension; K21.9 Gastro-esophageal reflux disease without esophagitis; E78.5 Hyperlipidemia, unspecified; Z88.8 Allergy status to other drugs, medicaments and biological substances; Z79.1 Long term (current) use of non-steroidal anti-inflammatories (NSAID); Z79.4 Long term (current) use of insulin; Z79.84 Long term (current) use of oral hypoglycemic drugs; Z79.810 Long term (current) use of selective estrogen receptor modulators (SERMs); Z79.899 Other long term (current) drug therapy

== ENCOUNTER → 2025-03-27 | Outpatient (CLI) | payer MEDICARE ==
[~2025-03-27] MED LIST changes: +PERCOCET PO; +TAMS-18 PO
== END ==
LOC: M RAD 13:11
PROVIDERS: ATTEND Physician Assistant
DX: Z48.812 Encounter for surgical aftercare following surgery on the circulatory system (principal); I73.9 Peripheral vascular disease, unspecified